=== PATIENT | male | born 1940 | race Caucasian/White ===

== ENCOUNTER → 2017-03-09 | Outpatient (CLI) | payer MEDICARE, BC | END | disposition home or self-care (01) | LOC: HKI 10:53 | DX: M23.8X1 Other internal derangements of right knee (principal); M25.561 Pain in right knee | CPT/HCPCS: 73562; 73562-50 ==

== ENCOUNTER → 2018-01-27 | Outpatient (CLI) | payer MEDICARE, BC | END | disposition home or self-care (01) | LOC: HKI 13:55 | DX: M25.551 Pain in right hip (principal) | CPT/HCPCS: 73502 ==

== ENCOUNTER → 2018-07-06 | Outpatient (CLI) | payer MEDICARE, BC | END | disposition home or self-care (01) | LOC: HKI 13:27 | DX: M41.124 Adolescent idiopathic scoliosis, thoracic region (principal); M76.30 Iliotibial band syndrome, unspecified leg | CPT/HCPCS: G0463 ==